=== PATIENT | female | born 2000 | race Hispanic/Latino ===

== ENCOUNTER 2024-02-01 09:03 | Outpatient (CLI) | payer OTHER | END 2024-02-01 09:04 | disposition home or self-care (01) | LOC: CSHULT 09:03 | PROVIDERS: ATTEND Advanced Practice Midwife | DX: Z34.92 Encounter for supervision of normal pregnancy, unspecified, second trimester (principal); Z3A.19 19 weeks gestation of pregnancy | CPT/HCPCS: 76805 ==

== ENCOUNTER 2024-06-15 21:12 | Inpatient (IN) | payer MEDICAID, OTHER ==
[~2024-06-15 21:12] MED LIST: Bupivacaine 0.25% HCL 30 ML VIAL ONE
[2024-06-15] MEDS ORDERED: Acetaminophen 500 MG TAB PO PRN (21:23)
[2024-06-15] MEDS ORDERED: fentaNYL 50 mcg/mL 1 mL Vial SLOW IVP PRN (21:23)
[2024-06-15] MEDS ORDERED: Tranexamic Acid 1,000 MG/10 ML VIAL IVP PRN (21:23)
[2024-06-15] MEDS ORDERED: Promethazine HCl 25 MG/ML VIAL IM PRN (21:23)
[2024-06-15] MEDS ORDERED: Diphenoxylate HCl/Atropine Tablet PO PRN (21:23)
[2024-06-15] MEDS ORDERED: Ibuprofen 800 MG TAB PO PRN (21:23)
[2024-06-15] MEDS ORDERED: Misoprostol 200 MCG TAB PR PRN (21:23)
[2024-06-15] MEDS ORDERED: Carboprost 250 MCG/ML AMP IM PRN (21:23)
[2024-06-15] MEDS ORDERED: Methylergonovine 0.2 MG/ML VIAL IM PRN (21:23)
[2024-06-15] MEDS ORDERED: Lidocaine 1% (PF) 30 ML VIAL SC PRN (21:23)
[2024-06-15] MEDS ORDERED: Ondansetron PF 4 MG/2 ML Vial IVP PRN (21:23)
[2024-06-15] MEDS ORDERED: HYDROcodone/Acetaminophen 5/325 mg Tablet PO PRN (21:23)
[2024-06-15] MEDS ORDERED: hydrALAZINE 20 MG/ML VIAL SLOW IVP PRN (21:23)
[2024-06-15 21:27] VITALS: BMI 26.4
[2024-06-15] MEDS ORDERED: Oxytocin 30 units/NS 500 ML 500 ML IV SCH ×2 (21:30)
[2024-06-15] MEDS: Lactated Ringer's 1,000 ML IV SCH (21:43)
[2024-06-15 21:55] LABS: Hematocrit 39.9 % (34.9-44.5); Hemoglobin 13.6 g/dL (12.0-15.5); Mean Corpuscular HGB CONC 34.1 g/dL (32.0-36.0); Mean Corpuscular Hemoglobin 30.7 pg (27.0-33.0); Mean Corpuscular Volume 90.1 fL (81.6-98.3); Mean Platelet Volume 11.2 fL (7.4-10.4); Platelet Count 148 10x3/uL (150-450); RBC Distribution Width 13.8 % (11.5-14.5); Red Blood Cell (RBC) Count 4.43 10x6/uL (3.90-5.03); White Blood Cell (WBC) Count 8.11 10x3/uL (3.5-10.5)
[2024-06-15] MEDS: Misoprostol 100 MCG TAB PO SCH (22:22)
[2024-06-15 22:28] LABS: HBsAg Index 0.21 S/CO (0-0.99); Hep B Surf Ag - L&D Non-Reactive S/CO (NonReactive)
[2024-06-15 22:30] LABS: Syphilis Antibody Nonreactive (Nonreactive); Syphilis Antibody Index 0.05 S/CO (<1.00 Non-Reactive)
[2024-06-16] MEDS ORDERED: ePHEDrine Sulfate 50 MG/10 ML VIAL SLOW IVP PRN (09:01)
[2024-06-16] MEDS ORDERED: Ondansetron PF 4 MG/2 ML Vial IVP PRN ×2 (09:01→14:51)
[2024-06-16] MEDS ORDERED: diphenhydrAMINE 50 MG/ML VIAL IVP PRN (09:01)
[2024-06-16] MEDS ORDERED: Promethazine HCl 25 MG/ML VIAL IM PRN ×2 (09:01→14:51)
[2024-06-16] MEDS ORDERED: Moisturizing Cream (Eucerin) 113 GM JAR TOP PRN (09:01)
[2024-06-16] MEDS ORDERED: Naloxone HCl 0.4 mg/ml Vial IVP PRN ×2 (09:01)
[2024-06-16] MEDS ORDERED: Acetaminophen 325 MG TAB PO PRN (09:01)
[2024-06-16] MEDS ORDERED: Lactated Ringer's 500 ML IV PRN (09:01)
[2024-06-16] MEDS ORDERED: Communication Order-Pharmacy FS SCH (09:15)
[2024-06-16] MEDS: Oxytocin 30 units/NS 500 ML 500 ML IV SCH (10:01)
[2024-06-16] MEDS: fentaNYL 2 mcg/Ropivacaine 0.2% Epidural 100 ML CADD EPIDURAL SCH (10:02)
[2024-06-16] MEDS ORDERED: Milk Of Magnesia 30 ML UDCUP PO PRN (14:51)
[2024-06-16] MEDS ORDERED: hydrALAZINE 20 MG/ML VIAL SLOW IVP PRN (14:51)
[2024-06-16] MEDS ORDERED: diphenhydrAMINE 25 MG CAP PO PRN (14:51)
[2024-06-16] MEDS ORDERED: Bisacodyl 10 MG SUPP PR PRN (14:51)
[2024-06-16] MEDS ORDERED: Benzocaine-Menthol 82.5 ML CAN TOP PRN (14:51)
[2024-06-16] MEDS ORDERED: Lanolin Ointment 7 GM TUBE TOP PRN (14:51)
[2024-06-16] MEDS: Ibuprofen 800 MG TAB PO SCH (15:06)
[2024-06-16] MEDS: fentaNYL/Ropivacaine Epidural 100 ML ONE (15:26)
[2024-06-16] MEDS: Ferrous Sulfate 325 MG TAB PO SCH (17:47)
[2024-06-16] MEDS: Boostrix 0.5 ML (Tdap) VIAL (>/=7 yrs of age) IM ONE (17:47)
[2024-06-16] MEDS: Docusate 100 MG CAP PO SCH (22:11)
[2024-06-17] MEDS: HYDROcodone/Acetaminophen 5/325 mg Tablet PO PRN (00:46)
[2024-06-17] MEDS: Prenatal Vitamin 1 TAB PO SCH (08:23)
[2024-06-17 11:29] VITALS: BP 99/57; TEMP 98.1
== END 2024-06-17 18:00 | disposition home or self-care (01) | DRG 807 ==
LOC: CSHLD 21:12 → CSHPP 06-16 15:15
PROVIDERS: ADMIT Family Medicine; ATTEND Family Medicine
PROC: 10E0XZZ Delivery of Products of Conception, External Approach (ICD-10-PCS; principal; 2024-06-15)
PROC: 10907ZC Drainage of Amniotic Fluid, Therapeutic from Products of Conception, Via Natural or Artificial Opening (ICD-10-PCS; 2024-06-15)
PROC: 3E0DXGC Introduction of Other Therapeutic Substance into Mouth and Pharynx, External Approach (ICD-10-PCS; 2024-06-15)
DX: O70.0 First degree perineal laceration during delivery (principal); Z37.0 Single live birth; Z3A.39 39 weeks gestation of pregnancy
CPT/HCPCS: 51702; 85027; 86780; 86850; 86900; 86901; 87340; J0665; J2590; J7120